=== PATIENT | female | born 1970 | race Caucasian/White ===

== ENCOUNTER → 2017-03-13 | Outpatient (CLI) | payer OTHER ==
[~2017-03-13] MED LIST: AMITRIPTYLINE 225 MG PO; BENADRYL 25MG C25 MG PO; IMITREX 25MG TA25 MG PO; MULTI VITAMINS1 TAB; VICODIN 7.5/501 EACH PO; VIVELLE-DO0.1 MG/24
--- NOTE | 2017-03-19 21:17 | RADIOLOGY REPORT PS360 ---
DIG MAMM-SCREEN [facility]ANDON W/CAD CAD Screening COMPARISON: Digital mammograms 06/14/2014 and additional views left breast 12/13/2014 INDICATION: There is no personal or family history of breast cancer TECHNIQUE: Standard CC and MLO images were obtained. R2 CAD reviewed. FINDINGS: Moderate scattered fibroglandular densities are seen in both breast primarily upper outer quadrants. The findings are fairly symmetrical bilaterally. There is no suspicious lesion and no suspicious microcalcifications. IMPRESSION: Fibrofatty parenchyma with no suspicious lesion seen recommend yearly follow-up BI-RADS CATEGORY: 1_Negative RECOMMENDED FOLLOWUP: 12M 12 MONTH FOLLOW-UP (A letter has been sent to the patient regarding results of the study.)
== END ==
LOC: RAD 15:12
DX: Z12.31 Encounter for screening mammogram for malignant neoplasm of breast (principal)
CPT/HCPCS: G0202